=== PATIENT | male | born 2005 | race Two or more races ===

== ENCOUNTER 2023-03-21 21:37 | Emergency (ER) | payer SELFPAY ==
[~2023-03-21] VITALS: Ht 170.2 cm; Wt 53.0 kg
[2023-03-21 22:45] LABS: Basophils # (auto) 0.1 10 ^3/uL (0-0.2); Basophils % (auto) 0.7 % (0.0-2.0); Eosinophils # (auto) 0.2 10 ^3/uL (0-0.8); Eosinophils % (auto) 2.8 % (0.0-7.0); Hematocrit 40.1 % (41.0-53.0); Hemoglobin 13.7 g/dL (13.5-17.5); Lymphocytes # (auto) 2.6 10 ^3/uL (0.4-5.4); Lymphocytes % (auto) 30.9 % (10.0-50.0); Mean Corpuscular Hemoglobin 30.8 pg (28.0-32.0); Mean Corpuscular Hgb Conc. 34.3 g/dL (32.0-36.0); Mean Corpuscular Volume 89.8 fL (80.0-100.0); Monocytes # (auto) 0.7 10 ^3/uL (0-1.3); Monocytes % (auto) 8.2 % (0.0-12.0); Neutrophils # (auto) 4.9 10 ^3/uL (1.6-8.6); Neutrophils % (auto) 57.4 % (37.0-80.0); Nucleated Red Blood Cells % 0.3 %; Red Blood Cells 4.47 10^6/uL (4.5-5.90); Red Cell Distribution Width 12.9 % (11.8-14.3); White Blood Cell 8.5 10^3/uL (4.4-10.8)
[2023-03-21 23:01] LABS: Albumin 4.2 g/dL (3.4-5.0); BUN/Creatinine Ratio 17.6 (10.0-20.0); Potassium 3.7 mmol/L (3.5-5.1)
[2023-03-21 23:01] LABS: Urine Bacteria NONE SEEN /hpf (None Seen); Urine Blood Negative /uL (Negative); Urine Mucus FEW (None Seen); Urine Specific Gravity 1.025 (1.001-1.035); Urine WBC 1 /hpf (0 - 3)
[2023-03-21 23:04] LABS: Bilirubin, Total 0.4 mg/dL (0.2-1.0); Total Protein 7.6 g/dL (6.4-8.2)
[2023-03-22] MEDS ORDERED: CIPR-173 PO (04:03)
[2023-03-22] MEDS ORDERED: FAMO20TA10 PO (04:03)
[2023-03-22 04:23] VITALS: BP 117/77
== END 2023-03-22 04:26 | disposition home or self-care (01) ==
LOC: ER 21:37
DX: K62.5 Hemorrhage of anus and rectum (principal)
CPT/HCPCS: 36415; 71045; 74176; 80053; 81001; 82270; 83690; 85025; 86850; 86900; 86901

== ENCOUNTER 2025-06-22 22:15 | Emergency (ER) | payer SELFPAY ==
[~2025-06-22] VITALS: Ht 170.2 cm; Wt 54.9 kg
[~2025-06-22 22:15] MED LIST: CIPR-173 PO; FAMO20TA10 PO
[2025-06-22 22:29] VITALS: BP 127/65; PULSE 110; RESP 20; TEMP 99.7; O2SAT 96
--- NOTE | 2025-06-22 23:57 | DVH ---
ULTRASOUND OF SCROTUM AND CONTENTS. INDICATION: Testicular pain COMPARISON: US GEN/SCROTUM on DOS: 06/14/23 TECHNIQUE: Multiple real-time grayscale sonographic and color and duplex doppler images of the scrotu m and its contents were obtained. FINDINGS: The right testicle measures 4.5 X 1.9 X 2.9 cm. The left testicle measures 4.5 X 2.7 X 3.1 cm. Both testicles demonstrate homogeneous echotexture without evidence of focal lesions. The right epididymis measures 1.2 cm. The left epididymis measures 1.5 cm. Left epididymal cyst measu ring 0.4 cm. Subsequent color and duplex doppler interrogation of the testes demonstrated symmetric normal vascula r flow to both testicles. Small left-sided hydrocele. Left 1 hernia containing bowel measuring 2.8 x 2.6 x 1.1 cm. IMPRESSION: No evidence of torsion, epididymitis, and/or orchitis. Small left-sided hydrocele. Small left epididymal cyst. Small left inguinal hernia containing bowel.
[2025-06-23 00:23] LABS: Urine Protein, UAD Trace (Negative)
--- NOTE | 2025-06-23 01:48 | ED.PDOC ---
History of Present Illness HPI Comments 20-year-old male, with a history of current hernia, colitis, and epididymitis, presents with chief complaint of left testicular pain. Patient endorses on sudden, unprovoked, and atraumatic onset of pain, last night. Pain is sharp in quality and feels similar to previous epididymitis he has had in the past. Patient also reports on having 2 week history of abdominal pain with bloody diarrhea. He states on symptoms feeling consistent to previous episodes of colitis. No endorsement of any recent travel, sick contact, spoiled food intake, or further pertinent or relevant events or history. Denial of any penile discharge, dysuria, nausea, vomiting, or further associated symptoms. REVIEW OF SYSTEMS: General: No fever, no chills, HEENT: No neck pain, no blurred vision Cardiac: No chest pain. No palpitations. Lungs: No shortness of breath, GI: No abdominal pain, no vomiting Musculoskeletal: No joint pain , no back pain Skin: No rash, no wound Neuro: No headache, no dizziness, no syncope PHYSICAL EXAM: General: Awake, alert and oriented. No acute distress. Skin: Skin in warm, dry and intact without rashes or lesions. HEENT: The head is normocephalic and atraumatic. Conjunctivae are clear without exudates or hemorrhage. Sclera is non-icteric. Neck: Normal range of motion. No JVD. Cardiac: Regular rate Respiratory: No signs of respiratory distress. No Stridor. Extremities: Upper and lower extremities are atraumatic in appearance without deformity. Genitourinary: No tenderness, swelling, or induration of the scrotum; no penile discharge. Neurological: The patient is awake, alert and oriented to person, place, and time with normal speech. Speech is clear. There is no facial asymmetry. Psychiatric: Appropriate mood and affect. Good judgement and insight. Chief Complaint: Testicle Pain Time Seen by MD: 00:55 Reviewed Notes: Nurses Notes, Medications, Allergies Allergies: Coded Allergies: NO KNOWN ALLERGIES (Unverified , 03/21/23) Home Meds Active Scripts Famotidine (PEPCID TABLET) 20 Mg Tb, 1 TAB PO BID for 7 Days, #14 TAB 0 Refills Prov:DAKSHA PHILLIPS MD 03/22/23 Ciprofloxacin Hcl (Cipro) 500 Mg Tab, 500 MG PO BID for 7 Days, #14 TAB Prov:DAKSHA PHILLIPS MD 03/22/23 Information Source: Patient Mode of Arrival: Ambulatory Past Medical History Past Medical History (Other): Current hernia Epididymitis Colitis Surgical History: Denies all surgeries Family History Family History: Reviewed,noncontributory to illness Social History Smoker: Non-Smoker Alcohol: Denies ETOH Use Drugs: Denies Drug Use Lives In: Home Was a procedure done? Was a procedure done?: No X-Ray, Labs, Meds, VS Vital Signs Date Time Temp Pulse Resp B/P (MAP) Pulse Ox O2 Delivery O2 Flow Rate FiO2 06/22/25 22:29 99.7 110 20 127/65 96 99.7 Lab Test 06/22/25 23:50 Range/Units Urine Color Yellow Yellow Urine Clarity Clear Clear Urine pH 6.0 5.0-9.0 Urine Specific [place] 1.032 1.001-1.035 Urine Protein Trace H Negative Urine Ketones 1+ H Negative Urine Blood Normal Negative /uL Urine Nitrite Negative Negative Urine Bilirubin Negative Negative Urine Urobilinogen Normal Negative mg/dL Urine Leukocyte Esterase Negative Negative /uL Urine Glucose Normal Normal mg/dL Chlamydia trachomatis (SOFI) Pending Neisseria gonorrhoeae (SOFI) Pending [place] [address] Ph: [phone] DIAGNOSTIC IMAGING Diagnostic Imaging Report : [id number] Signed PATIENT: JAVED PEREA JR. ACCT: [id number] UNIT: [id number] : 2005 LOC: ER ROOM / BED: / AGE / SEX: 20 / M ADM STATUS: REG ER SERVICE 36 ORDERING PHYSICIAN: EDYTA GAN MD PROCEDURE(s): TESUS - TESTICULAR ULTRASOUND REASON: Testicular pain ORDER NUMBER(s): [id number], ACCESSION NUMBER(s): [id number] ULTRASOUND OF SCROTUM AND CONTENTS. INDICATION: Testicular pain COMPARISON: US GEN/SCROTUM on DOS: 06/14/23 TECHNIQUE: Multiple real-time grayscale sonographic and color and duplex doppler images of the scrotum and its contents were obtained. FINDINGS: The right testicle measures 4.5 X 1.9 X 2.9 cm. The left testicle measures 4.5 X 2.7 X 3.1 cm. Both testicles demonstrate homogeneous echotexture without evidence of focal lesions. The right epididymis measures 1.2 cm. The left epididymis measures 1.5 cm. Left epididymal cyst measuring 0.4 cm. Subsequent color and duplex doppler interrogation of the testes demonstrated symmetric normal vascular flow to both testicles. Small left-sided hydrocele. Left 1 hernia containing bowel measuring 2.8 x 2.6 x 1.1 cm. IMPRESSION: No evidence of torsion, epididymitis, and/or orchitis. Small left-sided hydrocele. Small left epididymal cyst. Small left inguinal hernia containing bowel. ATED BY: DRISS SCHNEIDER MD DICTATED DATE/TIME: 06/22/252354 SIGNED BY: DRISS SCHNEIDER MD SIGNED DATE/TIME: 06/22/252354 CC: Time of 1ST Reevaluation: 01:25 Reevaluation 1ST: Unchanged Patient Education/Counseling: Need For Follow Up Family Education/Counseling: No Family Present SEPSIS Sepsis Screen Date sepsis recognized/suspect: Jun 22, 2025 Time Sepsis recognized/suspect: 2230 Recent Procedure: No On Antibiotic Therapy: No Respiratory Rate >20: No Heart Rate >90: Yes Temp<36 C (96.8 F) or >38.3 C: No SBP <90 or MAP <65 mmHG: No New Acute Mental Status Change: No Is the patient on CPAP, BIPAP,: No Physician Orders Chlamydia/Gc Amplification (06/22/25 22:37) Testicular Ultrasound (06/22/25 22:37) Vital Signs Date Time Temp Pulse Resp B/P (MAP) Pulse Ox O2 Delivery O2 Flow Rate FiO2 06/22/25 22:29 99.7 110 20 127/65 96 99.7 Departure 1 Departure Time of Disposition: 01:46 Impression: Primary Impression: Testicular pain Additional Impressions: Inguinal hernia Bloody diarrhea Disposition: HOME / SELF CARE / HOMELESS Condition: Stable Additional Instructions: ED DISCHARGE INSTRUCTIONS Instructions: Please read all instructions provided in this packet carefully. Although you have been discharged from the Emergency Department, this does not mean that you have a "clean bill of health". No definitive diagnosis for your symptoms has been made today. It is possible that you are in the process of developing a serious illness. This is why you must return to the ED without fail if any new or worsening symptoms (especially if your symptoms include chest pain, trouble breathing, abdominal pain, fever, headache, confusion, trouble seeing, or trouble walking) It is also very important that you see a primary care provider (PCP) within the next 3-5 days to follow up. If you are unable to get an appointment, return to the ED for re-evaluation. Inguinal Hernia: Care Instructions Table of Contents Your Care Instructions How can you care for yourself at home? When should you call for help? Credits Bulge of hernia in groin area Your Care Instructions An inguinal hernia occurs when tissue bulges through a weak spot in your groin area. You may see or feel a tender bulge in the groin or scrotum. You may also have pain, pressure or burning, or a feeling that something has "given way." Hernias are caused by a weakness in the belly wall. The bulge or discomfort may occur after heavy lifting, straining, or coughing. Hernias do not heal on their own, and they tend to get worse over time. If your hernia does not bother you, you most likely can wait to have surgery. Your hernia may get worse, but it may not. In some cases, hernias that are small and painless may never need to be repaired. Follow-up care is a duarn part of your treatment and safety. Be sure to make and go to all appointments, and call your doctor if you are having problems. It's also a good idea to know your test results and keep a list of the medicines you take. How can you care for yourself at home? Take pain medicines exactly as directed. If the doctor gave you a prescription medicine for pain, take it as prescribed. If you are not taking a prescription pain medicine, ask your doctor if you can take an [id number] medicine. Use proper lifting techniques, and avoid heavy lifting if you can. To lift things more safely, bend your knees and let your arms and legs do the work. Keep your back straight, and do not bend over at the waist. Keep the load as close to your body as you can. Move your feet instead of turning or twisting your body. Lose weight if you are overweight. Include fruits, vegetables, legumes, and whole grains in your diet each day. These foods are high in fiber and will make it easier to avoid straining during bowel movements. Do not smoke. Smoking can cause coughing, which can cause your hernia to bulge. If you need help quitting, talk to your doctor about stop-smoking programs and medicines. These can increase your chances of quitting for good. When should you call for help? Call your doctor now or seek immediate medical care if: You have new or worse belly pain. You are vomiting. You cannot pass stools or gas. You cannot push the hernia back into place with gentle pressure when you are lying down. The area over the hernia turns red or becomes tender. Watch closely for changes in your health, and be sure to contact your doctor if you have any problems. Comments 18-year-old male with left testicle pain. Reviewed imaging with the patient found to have left inguinal hernia. Patient also wanted him to reported diarrhea with some blood in the stool. He reports history of colitis. At this time he is declining any further workup for the GI symptoms. He would like to go home to follow up with his primary care provider. Critical Care Note Critical Care Time?: No Stability Stability form required: No Heart Score Heart Score: Heart Score Response (Comments) Value History N/A 0 EKG N/A 0 Age N/A 0 Risk Factors N/A 0 Troponin N/A 0 Total 0 I personally scribed for EDYTA GAN MD ([email or web address]) on 06/23/25 at 01:56. Electronically submitted by Pillo Turcios ([email or web address]). EDYTA GAN MD Jun 23, 2025 01:48
== END 2025-06-23 02:39 | disposition home or self-care (01) ==
LOC: ER 22:15
DX: N50.812 Left testicular pain (principal); K40.90 Unilateral inguinal hernia, without obstruction or gangrene, not specified as recurrent; K92.1 Melena; N45.1 Epididymitis; K52.9 Noninfective gastroenteritis and colitis, unspecified; Z79.899 Other long term (current) drug therapy
CPT/HCPCS: 76870; 81003